=== PATIENT | male | born 1930 | race Caucasian/White ===

== ENCOUNTER 2016-08-15 12:06 | Emergency (ER) | payer OTHER ==
[2016-08-15 12:23] VITALS: BP 129/77
--- NOTE | 2016-08-15 12:24 | ED Physician Documentation ---
History of Present Illness - Stated complaint Stated Complaint: FT/TOE NAIL PX - Chief complaint Chief Complaint: Ext Problem - History obtained from History obtained from: Patient - History of Present Illness Timing: Other (months) Pain level max: 5 Pain level now: 5 Improved by: nothing Worsened by: movement, palpation, wearing shoes. - Additonal information Additional information: states painful R great toe and second toe for several months. [facility]. Came here for eval. No fevers. No chills. Increasing pain. Takes oxycodone for his chronic back pain. Review of Systems Constitutional: denies: Fever, Chills GI: denies: Vomiting Skin: denies: Rash Musculoskeletal: reports: Back pain (chronic and unchanged). denies: Neck pain Neurologic: denies: Headache PD PAST MEDICAL HISTORY - Past Medical History Past Medical History: Yes Musculoskeletal: Chronic back pain - Present Medications Home Medications: Ambulatory Orders Medication Instructions Recorded Confirmed Oxycodone HCl/Acetaminophen 50 mg PO PRN PRN 08/15/16 08/15/16 [Oxycodon-Acetaminophen 2.5-325] Prednisone 5 mg PO PRN PRN 08/15/16 08/15/16 - Allergies Allergies/Adverse Reactions: Allergies Allergy/AdvReac Type Severity Reaction Status Date / Time No Known Drug Allergies Allergy Verified 08/15/16 12:17 - Social History Does the pt have substance abuse?: No - Family History Family history: reports: Non contributory PD ED PE NORMAL - Vitals Vital signs reviewed: Yes - General General: Alert and oriented X 3, No acute distress - Derm Derm: Warm and dry - Extremities Extremities: Other (onychomycosis of the R great and 2nd toes. normal skin. no redness, no swelling. NVI.) - Neuro Neuro: Alert and oriented X 3 - Psych Psych: Normal mood, Normal affect Results - Vitals Vitals: Vital Signs - 24 hr 08/15/16 12:14 Temperature 36.6 C Heart Rate 62 Respiratory 16 Rate Blood Pressure 129/77 O2 Saturation 98 Oxygen O2 Source Room air PD MEDICAL DECISION MAKING - ED course Complexity details: considered differential, d/w patient ED course: Patient is an 86-year-old male who presents to the emergency department with onychomycosis. Will refer him to dermatology for further evaluation and care. There is no acute infection of the surrounding skin or cellulitis. No paronychia. Patient counseled regarding signs and symptoms for which I believe and urgent re-evaluation would be necessary. Patient with good understanding of and agreement to plan and is comfortable going home at this time This document was made in part using voice recognition software. While efforts are made to proofread this document, sound alike and grammatical errors may occur. Patient has already been trialed on creams without relief. Did not feel comfortable with oral antifungal agents given his advanced age and potential for liver injury. Departure - Departure Disposition: 01 Home, Self Care Clinical Impression: Onychomycosis Condition: Good Instructions: ED Nail Infec Fungal Follow-Up: Kinjal Arriaga DPM [Provider Admit Priv/Credential] - Within 1 week Comments: You need to see a general expeditor for your foot. Return if you worsen. Discharge Date/Time: 08/15/16 12:54
== END 2016-08-15 12:54 | disposition home or self-care (01) ==
LOC: ED 12:06
DX: B35.1 Tinea unguium (principal)
CPT/HCPCS: 99283

== ENCOUNTER 2016-10-07 09:31 | Emergency (ER) | payer OTHER ==
[2016-10-07] MEDS ORDERED: DEXAMETHASONE 10 MG/ML VIAL PO STA (10:07)
--- NOTE | 2016-10-07 10:11 | ED Physician Documentation ---
PD HPI UPPER EXT INJURY - Stated complaint Stated Complaint: RT SHOULDER PAIN - Chief complaint Chief Complaint: Ext Problem - History obtained from History obtained from: Patient - History of Present Illness Location: Right, Shoulder Type of injury: Other (sweeping and shovelling) Where injury occurred: Home Timing - onset: How many months ago (many) Timing - duration: Months, Years Timing - details: Gradual onset, Still present, Waxing and waning Improved by: Rest, Immobilization Worsened by: Moving, Palpating Associated symptoms: No: Weakness, Numbness, Tingling, Swelling, Discolored Contributing factors: No: Anticoagulated Similar symptoms before: No diagnosis Recently seen: Emergency Dept (Seen in the ED 2 months ago for oncomycosis) - Additonal information Additional information: 86-year-old male with chronic right shoulder pain has worse pain today than usual. He does do shoveling and sweeping of horse manure. This morning the pain is intolerable. He relates that it always hurts and sometimes more than others. Review of Systems Constitutional: denies: Fever Respiratory: denies: Cough GI: denies: Vomiting Skin: denies: Rash Musculoskeletal: reports: Back pain, Extremity pain, Joint pain. denies: Neck pain, Joint swelling Neurologic: denies: Generalized weakness, Focal weakness, Numbness PD PAST MEDICAL HISTORY - Past Medical History Musculoskeletal: Chronic back pain - Present Medications Home Medications: Ambulatory Orders Medication Instructions Recorded Confirmed Oxycodone HCl/Acetaminophen 50 mg PO PRN PRN 08/15/16 10/07/16 [Oxycodon-Acetaminophen 2.5-325] Prednisone 5 mg PO PRN PRN 08/15/16 10/07/16 - Allergies Allergies/Adverse Reactions: Allergies Allergy/AdvReac Type Severity Reaction Status Date / Time No Known Drug Allergies Allergy Verified 10/07/16 09:51 - Social History Does the pt smoke?: No Smoking Status: Never smoker Does the pt drink ETOH?: Yes Does the pt have substance abuse?: No - Immunizations Immunizations are current?: Yes - POLST Patient has POLST: No PD ED PE NORMAL - Vitals Vital signs reviewed: Yes (normal) - General General: No acute distress, Well developed/nourished - HEENT HEENT: Atraumatic, PERRL - Neck Neck: Supple, no meningeal sign, No bony TTP - Respiratory Respiratory: No respiratory distress - Derm Derm: Normal color, Warm and dry, No rash - Extremities Extremities: No deformity, No edema, Other (There is pain to palpation of the anterior deltoid and pain with ROM testing. He is able to hold the arm in abduction but he is not able to get the arm over the shoulder. ) - Neuro Neuro: No motor deficit, No sensory deficit - Psych Psych: Normal mood, Normal affect Results - Vitals Vitals: Vital Signs - 24 hr 10/07/16 09:47 Temperature 36.4 C L Heart Rate 58 L Respiratory 16 Rate Blood Pressure 125/76 O2 Saturation 98 Oxygen O2 Source Room air - Rads (name of study) Right shoulder Radiology: Prelim report reviewed (Impression: Moderate to severe DJD.), EMP read indepedently, See rad report PD MEDICAL DECISION MAKING - ED course Complexity details: reviewed results, re-evaluated patient, considered differential, d/w patient ED course: 86-year-old male relatively healthy is shoveling horse maneuver daily and has severe DJD in his shoulder he appears to have a bursitis and is administered dexamethasone 10 mg orally here in the emergency department.He does have pain medication for his back. I have referred him to orthopedics for possible intra- articular injection Departure - Departure Disposition: 01 Home, Self Care Clinical Impression: Bursitis of right shoulder Condition: Stable Instructions: ED Bursitis Follow-Up: [facility] [Provider Group]
[2016-10-07] MEDS ORDERED: CHERRY SYRUP 10 ML UDC PO ONE (10:17)
[2016-10-07] MEDS ORDERED: DEXAMETHASONE 10 MG/ML VIAL ONE (10:17)
--- NOTE | 2016-10-07 10:36 | XRAY Preliminary Report ---
Exam: XR Shoulder 3 View RT IMPRESSION: Moderate to severe DJD [facility] SITE ID: [id number]
--- NOTE | 2016-10-07 10:39 | XRAY Report ---
EXAM: RIGHT SHOULDER RADIOGRAPHY EXAM DATE: 10/07/2016 10:31 AM. CLINICAL HISTORY: Pain with ROM. COMPARISON: None. TECHNIQUE: 3 views. FINDINGS: Bones: Normal. No fracture or bone lesion. Joints: AC joint hypertrophy. Glenohumeral joint osteophyte, joint space narrowing, subchondral scler osis and loose bodies Soft tissues: The visualized hemithorax is unremarkable. No soft tissue swelling. IMPRESSION: Moderate to severe DJD [facility] Referring Provider Line: [phone] SITE ID: [id number]
[2016-10-07 11:39] VITALS: BP 130/72
== END 2016-10-07 11:39 | disposition home or self-care (01) ==
LOC: ED 09:31
DX: M75.51 Bursitis of right shoulder (principal); M19.90 Unspecified osteoarthritis, unspecified site; G89.29 Other chronic pain
CPT/HCPCS: 73030; 99283; A9270

== ENCOUNTER 2017-03-12 11:49 | Outpatient (CLI) | payer OTHER ==
--- NOTE | 2017-03-12 18:27 | CT Report ---
DATE OF SERVICE: 03/12/2017 CT CHEST WITHOUT CONTRAST: 03/12/2017 CLINICAL INDICATION: Asbestosis. Axial CT images of the chest were obtained without intravenous contrast. In accordance with CT protocol optimization, one or more of the following dose reduction techniques were utilized for this exam: Automated exposure control, adjustment of mA and/or KV based on patient size, or use of iterative reconstructive technique. No previous CT is available for comparison. The heart and great vessels demonstrate mild atherosclerotic calcification. No hilar or mediastinal lymphadenopathy is present. The lungs demonstrate peripheral fibrosis, worst at the left base. Calcified pleural plaquing is present, compatible with previous asbestos exposure. No focal infiltrate, effusion, or pneumothorax is seen. Osseous structures demonstrate degenerative changes. Limited evaluation of upper abdominal structures demonstrates normal adrenal glands. IMPRESSION: Bilateral calcified pleural plaquing, compatible with previous asbestos exposure, with peripheral fibrosis, compatible with asbestosis. No adenopathy or suspicious pulmonary nodule. TD: 03/12/2017 19:26
== END 2017-03-12 11:50 | disposition home or self-care (01) ==
LOC: DI 11:49
PROVIDERS: ATTEND Internal Medicine
DX: J92.9 Pleural plaque without asbestos (principal); J84.10 Pulmonary fibrosis, unspecified
CPT/HCPCS: 71250

== ENCOUNTER 2018-01-20 13:14 | Outpatient (CLI) | payer MEDICARE, OTHER | END 2018-01-20 13:15 | disposition short-term general hospital (02) | LOC: EMS 13:14 | PROVIDERS: ATTEND Surgery | DX: R53.1 Weakness (principal); R25.9 Unspecified abnormal involuntary movements; R06.02 Shortness of breath | CPT/HCPCS: A0425; A0429 ==

== ENCOUNTER 2018-05-03 10:42 | Outpatient (CLI) | payer MEDICARE, OTHER ==
--- NOTE | 2018-05-03 14:37 | XRAY Report ---
Reason: SHOULDER JOINT PAIN, LEFT Procedure Date: 05/03/2018 Accession Number: [id number] / [id number] Procedure: [facility] - Shoulder 2 View LT CPT Code: FULL RESULT: EXAM: LEFT SHOULDER RADIOGRAPHY EXAM DATE: 05/03/2018 11:01 AM. CLINICAL HISTORY: Shoulder joint pain, left. COMPARISON: None. TECHNIQUE: 2 views. FINDINGS: Bones: Normal. No fracture or bone lesion. Joints: There is mild degenerative marginal osteophyte of the bony glenoid. Moderate dorsal osteophyte is noted of the AC joint. Soft tissues: The visualized hemithorax is unremarkable. No soft tissue swelling. IMPRESSION: Degenerative changes. No acute fracture appreciated. [facility]
--- NOTE | 2018-05-03 14:41 | XRAY Report ---
Reason: ASBESTOSIS Procedure Date: 05/03/2018 Accession Number: [id number] / [id number] Procedure: [facility] - Chest 2 View X-Ray CPT Code: 93156 FULL RESULT: EXAM: CHEST RADIOGRAPHY EXAM DATE: 05/03/2018 11:01 AM. CLINICAL HISTORY: Asbestosis. COMPARISON: CHEST W/O 03/12/2017 12:11 PM. TECHNIQUE: 2 views. FINDINGS: Lungs/Pleura: No focal airspace opacities. There is mild biapical pleural parenchymal thickening. There is calcific pleural plaquing noted over the domes of the hemidiaphragms stable from prior and consistent with history of asbestos exposure. Mediastinum: Heart and mediastinal contours are unremarkable. Other: Multilevel anterior bridging osteophyte is noted of the spine IMPRESSION: 1. Stable bilateral calcific pleural plaquing consistent with history of asbestos exposure. No acute infiltrates. [facility]
== END 2018-05-03 10:43 | disposition home or self-care (01) ==
LOC: DI.WCP 10:42
PROVIDERS: ATTEND Family Medicine
DX: J61 Pneumoconiosis due to asbestos and other mineral fibers (principal); M19.012 Primary osteoarthritis, left shoulder; R06.00 Dyspnea, unspecified
CPT/HCPCS: 36415; 71046; 80048; 83880; 85027

== ENCOUNTER 2018-05-03 11:06 | Outpatient (CLI) | payer MEDICARE, OTHER ==
[2018-05-03 18:59] LABS: HGB - HEMOGLOBIN 13.3 g/dL (14.0-18.0); MEAN CORPUSCULAR HEMOGLOBIN 31.9 pg (27.0-31.0); MEAN CORPUSCULAR HGB CONC 32.9 g/dL (32.0-36.0); MEAN PLATELET VOLUME 7.2 fL (7.4-11.4); RED BLOOD COUNT 4.17 10^6/uL (4.70-6.10); RED CELL DISTRIBUTION WIDTH 13.7 % (12.0-15.0); WHITE BLOOD COUNT 4.9 x10^3/uL (4.8-10.8)
[2018-05-03 19:37] LABS: CREATININE 0.9 mg/dL (0.6-1.2)
== END 2018-05-03 11:07 | disposition home or self-care (01) ==
LOC: LAB.WCP 11:06
PROVIDERS: ATTEND Family Medicine
DX: R06.00 Dyspnea, unspecified (principal)
CPT/HCPCS: 36415; 80048; 83880; 85027

== ENCOUNTER 2018-05-19 11:51 | Outpatient (CLI) | payer MEDICARE, OTHER ==
[~2018-05-19 11:51] MED LIST: ALBUTEROL NEB 2.5 MG/3 ML INH ONE
== END 2018-05-19 11:52 | disposition home or self-care (01) ==
LOC: RT 11:51
PROVIDERS: ATTEND Family Medicine
DX: J61 Pneumoconiosis due to asbestos and other mineral fibers (principal)
CPT/HCPCS: 94010; 94729

== ENCOUNTER 2018-08-05 11:03 | Outpatient (CLI) | payer MEDICARE, OTHER ==
--- NOTE | 2018-08-05 11:41 | XRAY Report ---
Reason: FATIGUE,WEIGHT LOSS,ASBESTOSIS Procedure Date: 08/05/2018 Accession Number: [id number] / [id number] Procedure: [facility] - Chest 2 View X-Ray CPT Code: 18019 FULL RESULT: EXAM: CHEST RADIOGRAPHY EXAM DATE: 08/05/2018 11:21 AM. CLINICAL HISTORY: FATIGUE,WEIGHT LOSS,ASBESTOSIS. COMPARISON: CHEST 2 VIEW 05/03/2018 10:49 AM. TECHNIQUE: 2 views. FINDINGS: Lungs/Pleura: Mild hyperinflation. Scattered bilateral upper lung zone scarring. No suspicious mass. Redemonstration of benign linear bilateral basilar pleural calcifications. No pleural-based mass. No effusion. Mediastinum: Heart and mediastinal contours are unremarkable. Other: None. IMPRESSION: 1. COPD. 2. No acute cardiopulmonary abnormality. No suspicious mass or effusion. RAD[facility]
== END 2018-08-05 11:04 | disposition home or self-care (01) ==
LOC: DI.WCP 11:03
PROVIDERS: ATTEND Family Medicine
DX: J44.9 Chronic obstructive pulmonary disease, unspecified (principal)
CPT/HCPCS: 71046

== ENCOUNTER 2018-08-05 11:44 | Outpatient (CLI) | payer MEDICARE, OTHER | END 2018-08-05 11:45 | disposition home or self-care (01) | LOC: LAB.WCP 11:44 | PROVIDERS: ATTEND Family Medicine | DX: R53.83 Other fatigue (principal); R63.4 Abnormal weight loss; J61 Pneumoconiosis due to asbestos and other mineral fibers | CPT/HCPCS: 36415; 82607; 82728; 82746; 83540; 84443; 84466; 85025; 85044 ==

== ENCOUNTER 2018-08-19 10:43 | Outpatient (CLI) | payer MEDICARE, OTHER ==
[2018-08-19 19:16] LABS: % IRON SATURATION 27 % (20-50); IRON 70 ug/dL (45-182); TOTAL IRON BINDING CAPACITY 256 ug/dL (250-450); TRANSFERRIN 183 mg/dL (180-329)
== END 2018-08-19 23:59 | disposition home or self-care (01) ==
LOC: LAB.WCP 10:43
PROVIDERS: ATTEND Family Medicine
DX: R53.83 Other fatigue (principal); R63.4 Abnormal weight loss; J61 Pneumoconiosis due to asbestos and other mineral fibers
CPT/HCPCS: 36415; 80053; 82607; 82728; 82746; 83540; 84443; 84466; 85025; 85044

== ENCOUNTER 2018-09-29 10:43 | Outpatient (CLI) | payer MEDICARE, OTHER ==
[2018-09-29 12:38] LABS: ABSOLUTE RETICS # AUTO 0.037 10^6/uL (0.020-0.110); BASOPHILS # (AUTO) 0.1 10^3/uL (0.0-0.1); BASOPHILS % (AUTO) 0.7 %; EOSINOPHILS # (AUTO) 0.6 10^3/uL (0.0-0.7); EOSINOPHILS % (AUTO) 8.7 %; HGB - HEMOGLOBIN 13.9 g/dL (14.0-18.0); LYMPHOCYTES # (AUTO) 1.6 10^3/uL (1.5-3.5); LYMPHOCYTES % (AUTO) 21.7 %; MEAN CORPUSCULAR HEMOGLOBIN 33.4 pg (27.0-31.0); MEAN CORPUSCULAR HGB CONC 34.2 g/dL (32.0-36.0); MEAN CORPUSCULAR VOLUME 97.6 fL (80.0-94.0); MEAN PLATELET VOLUME 9.2 fL (7.4-11.4); MONOCYTES # (AUTO) 0.6 10^3/uL (0.0-1.0); NEUTROPHILS # (AUTO) 4.4 10^3/uL (1.5-6.6); NEUTROPHILS % (AUTO) 60.8 %; PLT - PLATELET COUNT 254 10^3/uL (130-450); RED BLOOD COUNT 4.16 10^6/uL (4.70-6.10); RED CELL DISTRIBUTION WIDTH 12.3 % (12.0-15.0); WHITE BLOOD COUNT 7.2 x10^3/uL (4.8-10.8)
[2018-09-29 13:10] LABS: % IRON SATURATION 25 % (20-50); CHOL/HDL RATIO 2.7 (<5.0); CHOLESTEROL 147 mg/dL; HDL CHOLESTEROL 54 mg/dL; IRON 66 ug/dL (45-182); LDL CHOLESTEROL,CALCULATED 83 mg/dL; LDL/HDL RATIO 1.5 (<3.6); TOTAL IRON BINDING CAPACITY 267 ug/dL (250-450); TRANSFERRIN 191 mg/dL (180-329); VLDL CHOLESTEROL 10 mg/dL
[2018-09-29 13:33] LABS: FERRITIN 90.4 ng/mL (23.9-336.2)
== END 2018-09-29 23:59 | disposition home or self-care (01) ==
LOC: LAB.N 10:43
PROVIDERS: ATTEND Family Medicine
DX: E78.5 Hyperlipidemia, unspecified (principal); D64.9 Anemia, unspecified
CPT/HCPCS: 36415; 80061; 82607; 82728; 82746; 83540; 83721; 84466; 85025; 85044

== ENCOUNTER 2019-04-01 10:29 | Outpatient (CLI) | payer MEDICARE, OTHER ==
--- NOTE | 2019-04-01 14:29 | XRAY Report ---
Reason: SHOULDER JOINT PAIN Procedure Date: 04/01/2019 Accession Number: [id number] / [id number] Procedure: XRN - Shoulder 2 View RT CPT Code: Final Report FULL RESULT: EXAM: RIGHT SHOULDER RADIOGRAPHY EXAM DATE: 04/01/2019 10:45 AM. CLINICAL HISTORY: SHOULDER JOINT PAIN. COMPARISON: SHOULDER 3 VIEW RT 10/07/2016 10:16 AM. TECHNIQUE: 3 views. FINDINGS: Bones: Normal. No fracture or bone lesion. Joints: Moderate degenerative changes of right glenohumeral and acromioclavicular joints with loss of joint space, periarticular sclerosis and marginal glenoid osteophytes. Soft tissues: The visualized hemithorax is unremarkable. No soft tissue swelling. IMPRESSION: No acute displaced fracture or malalignment. Moderate degenerative changes of right glenohumeral and acromial clavicular joints with loss of joint space, periarticular sclerosis and marginal glenoid osteophytes. RADIA
== END 2019-04-01 10:30 | disposition home or self-care (01) ==
LOC: DI.N 10:29
PROVIDERS: ATTEND Family Medicine
DX: M19.011 Primary osteoarthritis, right shoulder (principal)

== ENCOUNTER 2019-08-05 07:38 | Outpatient (CLI) | payer MEDICARE, OTHER ==
--- NOTE | 2019-08-05 09:05 | XRAY Report ---
Reason: NUMBNESS,TINGLING Procedure Date: 08/05/2019 Accession Number: [id number] / [id number] Procedure: [facility] - Cervical Spine 2 View CPT Code: Final Report FULL RESULT: PROCEDURE: Cervical Spine 2 View INDICATIONS: NUMBNESS,TINGLING TECHNIQUE: 3 view(s) of the cervical spine were acquired. COMPARISON: None. FINDINGS: Bones: No fractures or dislocations to the C6-7 level. The lateral masses of C1 appear intact on the odontoid view. No suspicious bony lesions. There is moderate degenerative narrowing throughout the visualized cervical spine. C7-T1 is not visualized. Small areas of nonbridging anterior osteophytes are present. Multilevel uncovertebral hypertrophy is present. Soft tissues: No prevertebral soft tissue swelling. IMPRESSION: 1. Multilevel degenerative changes as above. 2. C7-T1 is not visualized, likely secondary to patient positioning. If this area remains of concern, repeat images are recommended. Reviewed by: Scarlett Mcintyre MD on 08/05/2019 9:04 AM PDT Approved by: Scarlett Mcintyre MD on 08/05/2019 9:04 AM PDT Station ID: [id number]
== END 2019-08-05 23:59 | disposition home or self-care (01) ==
LOC: DI.WCP 07:38
PROVIDERS: ATTEND Orthopaedic Surgery
DX: M47.812 Spondylosis without myelopathy or radiculopathy, cervical region (principal); M50.30 Other cervical disc degeneration, unspecified cervical region
CPT/HCPCS: 72040

== ENCOUNTER 2019-09-01 11:22 | Outpatient (CLI) | payer MEDICARE, OTHER ==
[2019-09-01 18:44] LABS: ALBUMIN 4.2 g/dL (3.2-5.5); ALBUMIN/GLOBULIN RATIO 1.6 (1.0-2.2); BILIRUBIN,TOTAL 0.7 mg/dL (0.2-1.0); CALCIUM 9.2 mg/dL (8.5-10.3); CREATININE 0.9 mg/dL (0.6-1.2); TOTAL PROTEIN 6.9 g/dL (6.7-8.2)
== END 2019-09-01 23:59 | disposition home or self-care (01) ==
LOC: LAB.WCP 11:22
PROVIDERS: ATTEND Family Medicine
DX: B35.1 Tinea unguium (principal)
CPT/HCPCS: 36415; 80053